=== PATIENT | female | born 1950 | race Caucasian/White ===

== ENCOUNTER 2020-02-09 09:56 | Emergency (ER) | payer OTHER ==
[~2020-02-09] VITALS: Ht 165.1 cm; Wt 72.6 kg
[~2020-02-09 09:56] MED LIST: ATENOLOL 100MG100 M2 PO; ATENOLOL 100MG100 MG PO; ATENOLOL 50 MG50 M1 PO; CARDURA2 MG PO; CARVEDILOL25 MG PO; CHLORTHALIDONE25 MG PO; MEDROL DOSPAK21 TAB PO; MICARDIS 80 MG80 MG PO
[2020-02-09 09:59] VITALS: BP 206/102
[2020-02-09] MEDS ORDERED: INDAPAMIDE1.25 MG PO (10:07)
[2020-02-09] MEDS ORDERED: CLONIDINE HCL0.2 M2 PO (10:07)
== END 2020-02-09 11:20 | disposition home or self-care (01) ==
LOC: ER 09:56
DX: S00.83XA Contusion of other part of head, initial encounter (principal); I10 Essential (primary) hypertension; Z79.899 Other long term (current) drug therapy; Z88.8 Allergy status to other drugs, medicaments and biological substances; Z91.030 Bee allergy status; W01.198A Fall on same level from slipping, tripping and stumbling with subsequent striking against other object, initial encounter; Y93.89 Activity, other specified; Y92.89 Other specified places as the place of occurrence of the external cause; Y99.8 Other external cause status